=== PATIENT | male | born 1945 | race Caucasian/White ===

== ENCOUNTER 2017-05-03 17:28 | Emergency (ER) | payer MEDICARE, OTHER ==
--- NOTE | 2017-05-03 18:03 | Emergency Department Record ---
History of Present Illness - General Source: Patient, Family Mode of Arrival: Wheelchair Limitations: No limitations - History of Present Illness Initial Comments: 71 yo male presents after a fall that occurred at 11am. He was working about 4 feet up on a ladder and fell. He landed on his left side. He did hit the side of his head. He is unsure but may have been briefly stunned or knocked out. Throughout the day he has developed back pain, left hip pain. NO neck pain. No headache. He is NOT on Plavix currently. He has been ambulating on the painful left hip. MD Complaint: Fall Onset/Timin -: Hour(s) When Fall Occurred: 4-6 hours [employer] Fall Witnessed: No Place Fall Occurred: Home Loss of Consciousness: Unsure Prolonged Down Time?: Minute(s) Symptoms Prior to Fall: None Location: Head Severity: Moderate Severity scale (1-10): 8 Quality: Sharp Associated Symptoms: Headache - [place] Coma Scale Eye Response: (4) Open spontaneously Motor Response: (6) Obeys commands Verbal Response: (5) Oriented [place] Total: 15 <ASHWIN MURRY - Last Filed: 05/03/17 19:17> <Samira Zhou - Last Filed: 05/03/17 21:16> - General Chief Complaint: Fall Injury Stated Complaint: FELL OFF LADDER Time Seen by Provider: 05/03/17 17:56 - Related Data Home Medications Medication Instructions Recorded Confirmed Last Taken Ezetimibe [Zetia] 10 mg PO DAILY 09/04/14 05/03/17 05/03/17 Lisinopril [Lisinopril] 20 mg PO BID 09/04/14 05/03/17 05/03/17 Tamsulosin HCl [Tamsulosin HCl] 0.4 mg PO DAILY 09/04/14 05/03/17 05/03/17 Citalopram Hydrobromide 10 mg PO DAILY 05/03/17 05/03/17 05/03/17 [Citalopram HBr] Previous Rx's Medication Instructions Recorded Hydrocodone/Acetaminophen [Antimony 1 each PO Q6H PRN #20 tablet 05/03/17 7.5-325 Tablet] Allergies Allergy/AdvReac Type Severity Reaction Status Date / Time No Known Drug Allergies Allergy Verified 02/22/16 14:30 Travel Screening - Travel/Exposure Within Last 30 Days Have you traveled within the last 30 days?: No - Travel/Exposure Within Last Year Have you traveled outside the [place] in the last year?: No - Additonal Travel Details Have you been exposed to anyone with a communicable illness?: No - Travel Symptoms Symptom Screening: None <ASHWIN MURRY - Last Filed: 05/03/17 19:17> Review of Systems Constitutional: Denies: Chills, Fever, Weakness Eyes: Denies: Eye discharge ENT: Denies: Congestion, Throat pain Respiratory: Denies: Cough, Dyspnea, Hemoptysis, Stridor, Wheezes Cardiovascular: Denies: Chest pain, Palpitations, Syncope Endocrine: Denies: Fatigue Gastrointestinal: Denies: Abdominal pain, Diarrhea, Nausea, Vomiting Genitourinary: Denies: Discharge, Dysuria, Frequency, Hematuria Musculoskeletal: Reports: Arthralgia, Back pain, Joint swelling, Myalgia. Denies: Neck pain Skin: Reports: Bruising Neurological: Reports: Headache. Denies: Confusion, Numbness, Tremors, Vertigo , Weakness Psychiatric: Denies: Anxiety Hematological/Lymphatic: Denies: Blood Clots, Easy bleeding, Easy bruising, Swollen glands <ASHWIN MURRY - Last Filed: 05/03/17 19:17> Past Medical History - SOCIAL HISTORY Smoking Status: Former smoker Alcohol Use: Occassional Drug Use: None - RESPIRATORY Hx Respiratory Disorders: No - CARDIOVASCULAR Hx Cardio Disorders: Yes Hx Hypertension: Yes - NEURO Hx Neuro Disorders: Yes Hx TIA: Yes - GI Hx GI Disorders: Yes Hx Reflux: Yes Hx of Polyps: Yes - Hx Genitourinary Disorders: Yes Hx Kidney Stones: Yes - ENDOCRINE Hx Endocrine Disorders: Yes Hx Diabetes: Yes Comment:: pre-diabetic; checks bs 2-3 - MUSCULOSKELETAL Hx Musculoskeletal Disorders: Yes Hx Arthritis: Yes Comment:: spinal menigitis at age 7; 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 negative: Contusion, General tenderness, Hematoma, Laceration Image of Face/Head: 1 - small superficial abrasion, no swelling - Eye Eye exam: Normal appearance, PERRL. negative: Conjunctival injection, Periorbital swelling - ENT ENT exam: Normal exam, Mucous membranes moist Ear exam: Normal external inspection Nasal Exam: Normal inspection Mouth exam: Normal external inspection Teeth exam: Normal inspection Throat exam: Normal inspection - Neck Neck exam: Normal inspection, Full ROM. negative: Tenderness - Respiratory Respiratory exam: Normal lung sounds bilaterally. negative: Accessory muscle use, Chest wall tenderness, Decreased breath sounds, Respiratory distress - Cardiovascular Cardiovascular Exam: Regular rate, Normal rhythm, Normal heart sounds Peripheral Pulses: 2+: Radial (R), Radial (L), Dorsalis Pedis (R), Dorsalis Pedis (L) - GI/Abdominal GI/Abdominal exam: Soft. negative: Distended, Tenderness - Rectal Rectal exam: Deferred - exam: Deferred - Extremities Extremities exam: Full ROM, Joint swelling (left hip), Normal capillary refill, Tenderness. negative: Normal inspection Image of Full Body: 1 - mild swelling, tenderness, full ROM - Back Back exam: Reports: CVA tenderness (R), CVA tenderness (L), Muscle spasm, Paraspinal tenderness - Neurological Neurological exam: Alert, Normal gait, Oriented X3. negative: Altered - Psychiatric Psychiatric exam: Normal affect, Normal mood. negative: Agitated, Anxious - Skin Skin exam: Dry, Intact, Normal color, Warm <ASHWIN MURRY - Last Filed: 05/03/17 19:17> Course Vital Signs 05/03/17 17:41 Temperature 98.4 F Pulse Rate 63 Respiratory 18 Rate Blood Pressure 153/81 Pulse Ox 97 - Reevaluation(s) Reevaluation #1: No acute changes on the labs The patient is in CT at this time 05/03/17 19:17 Reevaluation #2: The case was signed out to Dr Zhou Please see her chart for additional results 05/03/17 19:19 <ASHWIN MURRY - Last Filed: 05/03/17 19:17> Vital Signs 05/03/17 05/03/17 05/03/17 17:41 19:44 21:07 Temperature 98.4 F Pulse Rate 63 Pulse Rate [ 56 L 64 Pulse Ox Probe] Respiratory 18 16 16 Rate Blood Pressure 153/81 Blood Pressure 142/90 145/88 [Right Arm] Pulse Ox 97 97 96 - Reevaluation(s) Reevaluation #3: 05/03/17 21:13 pt doing better <Samira Zhou - Last Filed: 05/03/17 21:16> Medical Decision Making - Lab Data Result diagrams: 05/03/17 18:12 05/03/17 18:12 <ASHWIN MURRY - Last Filed: 05/03/17 19:17> - Lab Data Result diagrams: 05/03/17 18:12 05/03/17 18:12 Lab Results 05/03/17 05/03/17 05/03/17 Range/Units 18:12 18:12 18:12 WBC 9.6 (4.2-12.2) K/uL RBC 4.13 L (4.40-5.70) M/uL Hgb 13.1 L (14.0-18.0) gm/dl Hct 40.0 L (42.0-52.0) % MCV 96.9 (81-97) fl MCH 31.7 (27-33) pg MCHC 32.8 (32-36) g/dl RDW 13.3 (11.5-14.5) % Plt Count 278 (130-400) K/uL MPV 8.8 (7.4-10.4) fl Gran % 61.3 (47-80) % Lymphocytes % 24.2 (16-45) % Monocytes % 9.2 H (0-9) % Eosinophils % 4.9 (0-6) % Basophils % 0.4 (0-6) % PT 10.5 (9.5-12.1) SECONDS INR 0.93 APTT 24.10 L (24.5-39.1) SECONDS Sodium 142 (136-145) mmol/L Potassium 4.4 (3.5-5.1) mmol/L Chloride 111 H (98-107) mmol/L Carbon Dioxide 24.1 (22-30) mmol/L Anion Gap 6.9 L (7-16) BUN 27 H (9-20) mg/dL Creatinine 0.9 (0.66-1.25) mg/dL Estimated GFR > 60 ml/min Random Glucose 124 H (70-110) mg/dL Calcium 9.4 (8.5-10.1) mg/dL Total Bilirubin 0.49 (0.2-1.3) mg/dL AST 26 (17-59) U/L ALT 21 (21-72) U/L Alkaline Phosphatase 82 (38-126) U/L Total Protein 6.8 (6.3-8.2) gm/dL Albumin 3.9 (3.5-5.0) gm/dL Globulin 2.9 (1.4-4.8) gm/dL Albumin/Globulin Ratio 1.3 (1.1-1.8) <Samira Zhou - Last Filed: 05/03/17 21:16> Disposition <ASHWIN MURRY - Last Filed: 05/03/17 19:17> Disposition: Discharge <Samira Zhou - Last Filed: 05/03/17 21:16> Clinical Impression: Head contusion Qualifiers: Encounter type: initial encounter Contusion of head detail: other part of head Qualified Code(s): S00.83XA - Contusion of other part of head, initial encounter Contusion of hip, left Qualifiers: Encounter type: initial encounter Qualified Code(s): S70.02XA - Contusion of left hip, initial encounter Disposition: Home, Self-Care Condition: (1) Good Instructions: Contusion in Adults (ED) Additional Instructions: Rest and avoid over activity Antimony as directed for pain Call your doctor for follow up of this ER visit and to review the tests performed Return if you have any new pain, uncontrolled pain or concerns. Prescriptions: Hydrocodone/Acetaminophen [Antimony 7.5-325 Tablet] 1 each PO Q6H PRN #20 tablet PRN Reason: Pain - General Forms: Patient Portal Access
[2017-05-03 18:19] LABS: BASO % 0.4 % (0-6); EOS % 4.9 % (0-6); GRAN % 61.3 % (47-80); HEMOGLOBIN 13.1 gm/dl (14.0-18.0); LYMPH % 24.2 % (16-45); MEAN CELL VOLUME 96.9 fl (81-97); MEAN CORPUSCULAR HEMOGLOBIN 31.7 pg (27-33); MEAN CORPUSCULAR HGB CONC 32.8 g/dl (32-36); MEAN PLATELET VOLUME 8.8 fl (7.4-10.4); MONO % 9.2 % (0-9); PLATELET COUNT 278 K/uL (130-400); RED BLOOD COUNT 4.13 M/uL (4.40-5.70); RED CELL DISTRIBUTION WIDTH 13.3 % (11.5-14.5); WHITE BLOOD COUNT W/O DIFF 9.6 K/uL (4.2-12.2)
[2017-05-03 18:32] LABS: ALB/GLOB RATIO 1.3 (1.1-1.8); ALBUMIN 3.9 gm/dL (3.5-5.0); ALKALINE PHOSPHATASE 82 U/L (38-126); ALT/SGPT 21 U/L (21-72); ANION GAP 6.9 (7-16); AST/SGOT 26 U/L (17-59); BILIRUBIN,TOTAL 0.49 mg/dL (0.2-1.3); BLOOD UREA NITROGEN 27 mg/dL (9-20); CARBON DIOXIDE 24.1 mmol/L (22-30); CREATININE 0.9 mg/dL (0.66-1.25); EST GLOMERULAR FILTRATION RATE > 60 ml/min; GLUCOSE,RANDOM 124 mg/dL (70-110); TOTAL PROTEIN 6.8 gm/dL (6.3-8.2)
[2017-05-03 18:33] LABS: INR 0.93; PARTIAL THROMBOPLASTIN TIME 24.1 SECONDS (24.5-39.1); PROTHROMBIN TIME (PATIENT) 10.5 SECONDS (9.5-12.1)
[2017-05-03] MEDS ORDERED: MORPHINE SULFATE 5 MG/ML PFS IVP ONE (19:03)
[2017-05-03] MEDS ORDERED: HYDROMORPHONE HCL 1 MG/ML CPJ IVP ONE ×2 (19:59→21:12)
[2017-05-03] MEDS ORDERED: HYDROCODONE/APAP 7.5/325MG TABLET PO ONE (21:14)
--- NOTE | 2017-05-04 13:33 | CT SCAN REPORT ---
EXAM: CT OF THE ABDOMEN AND PELVIS HISTORY: BACK PAIN FROM A FALL. TECHNIQUE: CT of the abdomen and pelvis was performed following intravenous contrast administration. 100 ml of Omnipaque 300 contrast was used for this examination. Comparison: CT of the abdomen and pelvis 11/15/10. FINDINGS: Mild prominence of the intrahepatic bile ducts likely an incidental finding related to the patient's prior cholecystectomy. The liver is otherwise unremarkable. The spleen is unremarkable. No pancreatic mass or inflammatory change. The gallbladder is surgically absent. No adrenal lesion seen. There is bilateral renal function with no suspicious renal mass or hydronephrosis. There are atherosclerotic changes in the abdominal aorta. There is no aneurysm. No periaortic mass or adenopathy. There are no dilated bowel loops. There is a fat containing left inguinal hernia. There is mild prostatic enlargement. There are arthritic changes in the lumbar spine. Arthritic changes are seen in the sacroiliac joints. IMPRESSION: 1. NO ACUTE ABDOMINAL OR PELVIC PROCESS IDENTIFIED. 2. PRIOR CHOLECYSTECTOMY. 3. PROSTATIC ENLARGEMENT WHICH APPEARS STABLE. 4. FAT CONTAINING RIGHT INGUINAL HERNIA. 5. ARTHRITIC CHANGES IN THE LUMBAR SPINE AND SACROILIAC JOINTS. JOB NUMBER: [id number] [facility]
--- NOTE | 2017-05-04 13:35 | CT SCAN REPORT ---
EXAM: HEAD CT HISTORY: FALL. TECHNIQUE: Noncontrast head CT was obtained. Comparison: 10/26/13. FINDINGS: The ventricles and subarachnoid spaces are unremarkable for the patient's age. No mass or mass effect. No intra or extraaxial hemorrhage. No CT evidence for large acute territorial infarct. There is no fracture or acute osseous abnormality. IMPRESSION: NO ACUTE INTRACRANIAL PROCESS IDENTIFIED. JOB NUMBER: [id number] [facility]
--- NOTE | 2017-05-04 13:39 | CT SCAN REPORT ---
EXAM: CT OF THE CERVICAL SPINE HISTORY: PATIENT FELL. TECHNIQUE: CT of the cervical spine was performed without contrast. Comparison: None. FINDINGS: No fracture or acute osseous abnormality. There are diffuse arthritic changes in the cervical spine. There is disk space narrowing at several levels most pronounced at C2-C3 and C5-C6. Facet arthritic changes are present throughout the cervical spine. There is uncovertebral spurring at multiple levels and neural foraminal narrowing is present at several levels. There is no soft tissue swelling or cervical mass visualized. IMPRESSION: 1. DIFFUSE ARTHRITIC CHANGES IN THE CERVICAL SPINE. 2. NO FRACTURE OR ACUTE OSSEOUS ABNORMALITY. JOB NUMBER: [id number] [facility]
--- NOTE | 2017-05-04 13:43 | CT SCAN REPORT ---
EXAM: CT OF THE THORAX HISTORY: PATIENT FELL, PAIN. TECHNIQUE: CT of the thorax was performed following intravenous contrast administration. 100 ml of Omnipaque 300 contrast was used for this exam. Comparison: None. FINDINGS: No mediastinal mass or hematoma seen. There are nonenlarged mediastinal and hilar lymph nodes. No aortic aneurysm or aortic dissection. There are coronary artery calcifications. No pleural or pericardial effusion. There is a calcified nodule at the left lung base likely an old granuloma. This measures approximately 5 mm in size. There are no suspicious noncalcified lung nodules seen. No area of lung consolidation. There is a small focal hernia in the medial right hemidiaphragm containing only fat similar to the patient's previous abdomen CT's. No fracture or acute osseous abnormality identified. IMPRESSION: 1. NO ACUTE THORACIC PROCESS. 2. CORONARY ARTERY CALCIFICATIONS ARE PRESENT. 3. OLD GRANULOMA RIGHT LUNG BASE. 4. OTHER CHRONIC FINDINGS ABOVE. JOB NUMBER: [id number] [facility]
== END 2017-05-03 22:00 | disposition home or self-care (01) ==
LOC: ER 17:28
DX: S00.83XA Contusion of other part of head, initial encounter (principal); S70.02XA Contusion of left hip, initial encounter; S00.81XA Abrasion of other part of head, initial encounter; S40.811A Abrasion of right upper arm, initial encounter; M54.5 Low back pain; I10 Essential (primary) hypertension; Z87.891 Personal history of nicotine dependence; W11.XXXA Fall on and from ladder, initial encounter; Y92.009 Unspecified place in unspecified non-institutional (private) residence as the place of occurrence of the external cause
CPT/HCPCS: 99284 ×2; 96376; 96374; 96375; 85025; 85730; 85610; 80053; 72125; 71260; 70450; 74177; Q9967; J1170; J2270

== ENCOUNTER 2018-03-05 09:28 | Emergency (ER) | payer MEDICARE, OTHER ==
[2018-03-05] MEDS ORDERED: LIDOCAINE UROJECT 10 ML APPL MM ONE (09:41)
--- NOTE | 2018-03-05 09:44 | Emergency Department Record ---
History of Present Illness - General Chief complaint: Male Urogenital Problem Stated complaint: UNABLE TO URINATE Time Seen by Provider: 03/05/18 09:38 Source: Patient Mode of Arrival: Ambulatory Limitations: No limitations - History of Present Illness Initial comments: The patient is here due to being unable to urinate this AM. He last urinated last evening about 9pm. He is now having lower abdominal pain. The patient denies any new medicines or illnesses. MD Complaint: Other Onset/Timin -: Hour(s) Location: Abdomen Radiation: None Severity scale (1-10): 6 Quality: Aching, Other Consistency: Constant Improves with: None Worsens with: None Reports: Urinary retention - Related Data Allergies Allergy/AdvReac Type Severity Reaction Status Date / Time No Known Drug Allergies Allergy Verified 02/22/16 14:30 Travel Screening - Travel/Exposure Within Last 30 Days Have you traveled within the last 30 days?: No Review of Systems Constitutional: Denies: Chills, Fever Past Medical History - SOCIAL HISTORY Smoking Status: Former smoker Alcohol Use: Rare Drug Use: None - RESPIRATORY Hx Respiratory Disorders: No - CARDIOVASCULAR Hx Cardio Disorders: Yes Hx Hypertension: Yes - NEURO Hx Neuro Disorders: Yes Hx TIA: Yes - GI Hx GI Disorders: Yes Hx Reflux: Yes Hx of Polyps: Yes - Hx Genitourinary Disorders: Yes Hx Kidney Stones: Yes Hx Prostate Problems: Yes - ENDOCRINE Hx Endocrine Disorders: Yes Hx Diabetes: Yes Comment:: pre-diabetic; checks bs 2-3 - MUSCULOSKELETAL Hx Musculoskeletal Disorders: Yes Hx Arthritis: Yes Comment:: spinal menigitis at age 7; 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; - PSYCH Hx Psych Problems: Yes Hx Depression: Yes - HEMATOLOGY/ONCOLOGY Hx Hematology/Oncology Disorders: No Family Medical History Any Significant Family History?: Yes Hx Cancer: Mother, Brother/Sister Hx HTN: Mother, Grandparents Hx Resp Disorders: Father Physical Exam - General General Appearance: Alert, Oriented x3, Cooperative, No acute distress - Head Head exam: Atraumatic, Normocephalic - Eye Eye exam: Normal appearance, PERRL - GI/Abdominal GI/Abdominal exam: Soft, Tenderness (There is suprapubic tenderness.) - Extremities Extremities exam: Normal inspection, Full ROM, Normal capillary refill. negative: Tenderness Course Vital Signs 03/05/18 09:37 Temperature 97.7 F Pulse Rate [ 63 Pulse Ox Probe] Respiratory 18 Rate Blood Pressure 144/88 [Left Arm] Pulse Ox 99 - Reevaluation(s) Reevaluation #1: The patient is doing MUCH better after the vega catheter placement. He did drain about 800 cc's of urine and his abdomen is very soft and nontender. 03/05/18 10:01 Reevaluation #2: The patient is doing very well at this time. He would like to keep the catheter in for the next 2 days. He is to return to the 0.8 mg of Flomax daily and will return Wednesday morning for catheter removal. 03/05/18 10:21 Medical Decision Making - Lab Data Result diagrams: 03/05/18 09:45 03/05/18 09:45 Disposition Disposition: Discharge Clinical Impression: Retention of urine Disposition: Home, Self-Care Condition: (2) Stable Instructions: Urinary Retention in Men (ED) Additional Instructions: Please take 2 Flomax daily and return to the ER Wednesday for recheck. Return sooner for any nausea, vomiting, or diarrhea. Referrals: [facility] Specialty Clinics [Provider Group] Forms: Patient Portal Access Time of Disposition: 10:23 Quality - Quality Measures Quality Measures: N/A - Blood Pressure Screening View Details: Yes Does Patient Have Any of the Following: Active Dx of HTN Blood Pressure Classification: Pre-Hypertensive BP Reading Systolic Measurement: 144 Diastolic Measurement: 88 Screening for High Blood Pressure: Patient Exclusion, Hx of HTN [[id number]]
[2018-03-05 09:57] LABS: BASO % 0.3 % (0-6); EOS % 4.7 % (0-6); HEMATOCRIT 44.2 % (42.0-52.0); HEMOGLOBIN 14.7 gm/dl (14.0-18.0); LYMPH % 22.1 % (16-45); MEAN CELL VOLUME 96.5 fl (81-97); MEAN CORPUSCULAR HEMOGLOBIN 32.1 pg (27-33); MEAN CORPUSCULAR HGB CONC 33.3 g/dl (32-36); MEAN PLATELET VOLUME 8.5 fl (7.4-10.4); MONO % 6.9 % (0-9); PLATELET COUNT 326 K/uL (130-400); RED BLOOD COUNT 4.58 M/uL (4.40-5.70); RED CELL DISTRIBUTION WIDTH 12.9 % (11.5-14.5); WHITE BLOOD COUNT W/O DIFF 11.8 K/uL (4.2-12.2)
[2018-03-05 10:06] LABS: BLOOD UREA NITROGEN 20 mg/dL (8-23)
[2018-03-05 10:06] LABS: URINE APPEARANCE CLEAR; URINE BILIRUBIN NEGATIVE (NEGATIVE); URINE BLOOD MODERATE (NEGATIVE); URINE COLOR YELLOW; URINE GLUCOSE (UA) NEGATIVE (NEGATIVE); URINE KETONE NEGATIVE (NEGATIVE); URINE LEUKOCYTE ESTERASE NEGATIVE (NEGATIVE); URINE NITRITE NEGATIVE (NEGATIVE); URINE PROTEIN NEGATIVE (NEGATIVE); URINE UROBILINOGEN 0.2 E.U./dL (0.20 - 1.00)
[2018-03-05 10:07] LABS: CREATININE 0.6 mg/dL (0.7-1.2); EST GLOMERULAR FILTRATION RATE > 60 mL/min
[2018-03-05 10:09] LABS: GLUCOSE,RANDOM 136 mg/dL (74-109)
[2018-03-05 10:10] LABS: URINE EPITHELIAL CELLS NONE SEEN (FEW); URINE WBC NONE SEEN (0-2/hpf)
== END 2018-03-05 10:33 | disposition home or self-care (01) ==
LOC: ER 09:28
DX: R39.198 Other difficulties with micturition (principal); R10.9 Unspecified abdominal pain; R33.8 Other retention of urine; I10 Essential (primary) hypertension; Z87.891 Personal history of nicotine dependence
CPT/HCPCS: 80048; 81001; 85025; 99282; 99283

== ENCOUNTER 2018-03-05 17:59 | Emergency (ER) | payer MEDICARE, OTHER ==
--- NOTE | 2018-03-05 18:09 | Emergency Department Record ---
History of Present Illness - General Chief complaint: Male Urogenital Problem Stated complaint: CATHADER PAIN Time Seen by Provider: 03/05/18 18:00 Source: Patient Mode of Arrival: Ambulatory Limitations: No limitations - History of Present Illness Initial comments: The patient is here due to having bladder pain after having a vega catheter placed 8 hours ago. He had urine retention this AM and had the catheter placed here in the ER. He did have about 800 cc's of urine out. The patient states the catheter has been draining well but about 2 hours ago he developed pain in the penis and now would like it out. There has been no fever or chills. MD Complaint: Other Onset/Timin -: Hour(s) Location: Penis Improves with: None Worsens with: None Reports: Other - Related Data Previous Rx's Medication Instructions Recorded Cephalexin [Keflex] 500 mg PO TID #21 cap 03/05/18 Allergies Allergy/AdvReac Type Severity Reaction Status Date / Time No Known Drug Allergies Allergy Verified 02/22/16 14:30 Travel Screening - Travel/Exposure Within Last 30 Days Have you traveled within the last 30 days?: No - Travel/Exposure Within Last Year Have you traveled outside the [place] in the last year?: No - Additonal Travel Details Have you been exposed to anyone with a communicable illness?: No - Travel Symptoms Symptom Screening: None Past Medical History - SOCIAL HISTORY Smoking Status: Former smoker Alcohol Use: None Drug Use: None - RESPIRATORY Hx Respiratory Disorders: No - CARDIOVASCULAR Hx Cardio Disorders: Yes Hx Hypertension: Yes - NEURO Hx Neuro Disorders: Yes Hx TIA: Yes - GI Hx GI Disorders: Yes Hx Reflux: Yes Hx of Polyps: Yes - Hx Genitourinary Disorders: Yes Hx Kidney Stones: Yes Hx Prostate Problems: Yes - ENDOCRINE Hx Endocrine Disorders: Yes Hx Diabetes: Yes Comment:: pre-diabetic; checks bs 2-3 - MUSCULOSKELETAL Hx Musculoskeletal Disorders: Yes Hx Arthritis: Yes Comment:: spinal menigitis at age 7; 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 negative: Respiratory distress - Cardiovascular Cardiovascular Exam: Regular rate, Normal rhythm, Normal heart sounds - GI/Abdominal GI/Abdominal exam: Soft, Normal bowel sounds. negative: Rebound, Rigid, Tenderness - exam: Circumcision, Normal inspection - Extremities Extremities exam: Normal inspection, Full ROM, Normal capillary refill. negative: Tenderness Course Vital Signs 03/05/18 18:02 Pulse Rate 73 Respiratory 16 Rate Blood Pressure 145/82 Pulse Ox 98 - Reevaluation(s) Reevaluation #1: The patient had the catheter removed with no difficulty and his pain did resolve. He denies any discomfort or nausea and is ready for home. He understands the need to return if he is unable to urinate. 03/05/18 18:16 Disposition Disposition: Discharge Clinical Impression: Retention of urine Disposition: Home, Self-Care Condition: (2) Stable Instructions: Urinary Retention in Men (ED) Additional Instructions: Please take the Keflex as directed and see Dr. Lamb as directed. Please return to the ER for any problems or if unable to urinate. Prescriptions: Cephalexin [Keflex] 500 mg PO TID #21 cap Forms: Patient Portal Access Time of Disposition: 18:18 Quality - Quality Measures Quality Measures: N/A - Blood Pressure Screening View Details: Yes Does Patient Have Any of the Following: No Blood Pressure Classification: Pre-Hypertensive BP Reading Systolic Measurement: 145 Diastolic Measurement: 82 Screening for High Blood Pressure: < Pre-Hypertensive BP, F/U Documented > [ [id number]] Pre-Hypertensive Follow-up Interventions: Referral to alternative/primary care provider.
[2018-03-05] MEDS ORDERED: CEPHALEXIN 500 MG CAPSULE PO STA (18:15)
== END 2018-03-05 18:25 | disposition home or self-care (01) ==
LOC: ER 17:59
DX: R33.8 Other retention of urine (principal); I10 Essential (primary) hypertension; F17.210 Nicotine dependence, cigarettes, uncomplicated

== ENCOUNTER 2019-07-12 09:13 | Emergency (ER) | payer MEDICARE, OTHER ==
[2019-07-12] MEDS ORDERED: ASPIRIN 81 MG CHEWABLE TABLET PO ONE (09:33)
--- NOTE | 2019-07-12 09:34 | Emergency Department Record ---
History of Present Illness - General Chief Complaint: Chest Pain Stated Complaint: CHEST PAIN Time Seen by Provider: 07/12/19 09:19 Source: Patient, RN notes reviewed Mode of Arrival: Ambulatory - History of Present Illness Initial Comments: patient states anterior chest wall pain and left shoulder pain sharp and worse with palpation of the left shoulder area and it started 2 dours ago and no previous heart problems and he built a fence yesterday and he is going to [employer] tomorrow to fish. No nausea no diaphoresis and he is able to reproduce the pain moving his left arm. MD Complaint: Chest pain Onset/Timin -: Days(s) Onset: Other Pain Location: Left chest Pain Radiation: LUE Severity scale (1-10): 2 Quality: Aching Consistency: Constant, Other Improves With: Nothing Worsens With: Nothing Anginal Symptoms: Nausea Treatments Prior to Arrival: None - Related Data Previous Rx's Medication Instructions Recorded Naproxen [Naprosyn] 500 mg PO Q12H #30 tab. 07/12/19 Allergies Allergy/AdvReac Type Severity Reaction Status Date / Time No Known Drug Allergies Allergy Unverified 05/24/19 11:09 Travel Screening - Travel/Exposure Within Last 30 Days Have you traveled within the last 30 days?: No Review of Systems Reviewed: No additional complaints except as noted below Constitutional: Reports: As per HPI. Denies: Chills, Fever, Malaise, Night sweats, Weakness, Weight change Eyes: Reports: As per HPI. Denies: Eye discharge, Eye pain, Photophobia, Vision change ENT: Reports: As per HPI. Denies: Congestion, Dental pain, Ear pain, Epistaxis, Hearing loss, Throat pain Respiratory: Reports: As per HPI. Denies: Cough, Dyspnea, Hemoptysis, Stridor, Wheezes Cardiovascular: Reports: As per HPI. Denies: Arrhythmia, Chest pain, Dyspnea on exertion, Edema, Murmurs, Orthopnea, Palpitations, Paroxysmal nocturnal dyspnea, Rheumatic Fever, Syncope Endocrine: Reports: As per HPI. Denies: Fatigue, Heat or cold intolerance, Polydipsia, Polyuria Gastrointestinal: Reports: As per HPI. Denies: Abdominal pain, Constipation, Diarrhea, Hematemesis, Hematochezia, Melena, Nausea, Vomiting Genitourinary: Reports: As per HPI. Denies: Dysuria, Frequency, Hematuria, Incontinence, Retention, Testicular pain, Testicular mass, Urgency Musculoskeletal: Reports: As per HPI. Denies: Arthralgia, Back pain, Gout, Joint swelling, Myalgia, Neck pain Skin: Reports: As per HPI. Denies: Bruising, Change in color, Change in hair/nails, Lesions, Pruritus, Rash Neurological: Reports: As per HPI. Denies: Abnormal gait, Confusion, Headache, Numbness, Paresthesias, Seizure, Tingling, Tremors, Vertigo, Weakness Psychiatric: Reports: As per HPI. Denies: Anxiety, Auditory hallucinations, Depression, Homicidal thoughts, Suicidal thoughts, Visual hallucinations Hematological/Lymphatic: Reports: As per HPI. Denies: Anemia, Blood Clots, Easy bleeding, Easy bruising, Swollen glands Past Medical History - SOCIAL HISTORY Smoking Status: Former smoker - RESPIRATORY Hx Respiratory Disorders: Yes Hx Sleep Apnea: Yes (possibly pt snores) - CARDIOVASCULAR Hx Cardio Disorders: Yes Hx Hypertension: Yes (on meds good control) - NEURO Hx Neuro Disorders: Yes Hx TIA: Yes (4-5 yrs ago) - GI Hx GI Disorders: Yes Hx Reflux: Yes (with over eatting) Hx of Polyps: Yes - Hx Genitourinary Disorders: Yes Hx Kidney Stones: Yes Hx Prostate Problems: Yes (BPH) - ENDOCRINE Hx Endocrine Disorders: Yes Hx Diabetes: Yes Comment:: pre-diabetic; checks bs 2-3 x's a week 116 - MUSCULOSKELETAL Hx Musculoskeletal Disorders: Yes Hx Arthritis: Yes (hands, fingers) Comment:: spinal menigitis at age 7; 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; - PSYCH Hx Psych Problems: Yes Hx Depression: Yes - HEMATOLOGY/ONCOLOGY Hx Hematology/Oncology Disorders: No Family Medical History Any Significant Family History?: Yes Hx Cancer: Mother, Brother/Sister Hx HTN: Mother, Grandparents Hx Resp Disorders: Father Physical Exam - General General Appearance: Alert, Oriented x3, Cooperative, No acute distress - Head Head exam: Normal inspection - Eye Eye exam: Normal appearance, PERRL Pupils: Normal accommodation - ENT ENT exam: Normal exam, Mucous membranes moist, Normal external ear exam, Normal orophraynx, TM's normal bilaterally Ear exam: Normal external inspection. negative: External canal tenderness Nasal Exam: Normal inspection. negative: Discharge, Sinus tenderness Mouth exam: Normal external inspection, Tongue normal Teeth exam: Normal inspection. negative: Dental caries Throat exam: Normal inspection. negative: Tonsillar erythema, Tonsillar exudate - Neck Neck exam: Normal inspection, Full ROM. negative: Tenderness - Respiratory Respiratory exam: Normal lung sounds bilaterally. negative: Respiratory distress - Cardiovascular Cardiovascular Exam: Regular rate, Normal rhythm, Normal heart sounds, Other (palpation of the left shoulder and chest causes more pain) - GI/Abdominal GI/Abdominal exam: Soft, Normal bowel sounds. negative: Tenderness - Rectal Rectal exam: Deferred - exam: Deferred - Extremities Extremities exam: Normal inspection, Full ROM, Normal capillary refill. negative: Tenderness - Back Back exam: Reports: Normal inspection, Full ROM. Denies: Muscle spasm, Rash noted, Tenderness - Neurological Neurological exam: Alert, Normal gait, Oriented X3, Reflexes normal - Psychiatric Psychiatric exam: Normal affect, Normal mood - Skin Skin exam: Dry, Intact, Normal color, Warm Course Vital Signs 07/12/19 09:18 Pulse Rate 59 L Respiratory 16 Rate Blood Pressure 152/90 Pulse Ox 98 Medical Decision Making - Data Complexity MDM Data: Labs Ordered and/or Reviewed, EKG Ordered and/or Reviewed (EKG no acute changes and NSR and ) - Lab Data Result diagrams: 07/12/19 09:20 07/12/19 09:20 - EKG Data -: EKG Interpreted by Me Disposition Clinical Impression: Acute chest wall pain Disposition: Home, Self-Care Condition: (1) Good Instructions: Costochondritis (ED) Additional Instructions: follow up with family Dr in 1-2 weeks Prescriptions: Naproxen [Naprosyn] 500 mg PO Q12H #30 tab.dr Forms: Patient Portal Access Time of Disposition: 10:22 Quality - Quality Measures Quality Measures: N/A - Blood Pressure Screening Does Patient Have Any of the Following: No, Active Dx of HTN Blood Pressure Classification: Hypertensive Reading Systolic Measurement: 152 Diastolic Measurement: 90 Screening for High Blood Pressure: Patient Exclusion, Hx of HTN [[id number]]
[2019-07-12 09:42] LABS: ABSOLUTE NEUTROPHIL COUNT 3.11; BASO % 0.6 % (0-6); EOS % 7.6 % (0-6); HEMATOCRIT 43.9 % (42.0-52.0); HEMOGLOBIN 14.6 gm/dl (14.0-18.0); LYMPH % 38.3 % (16-45); MEAN CELL VOLUME 95.9 fl (81-97); MEAN CORPUSCULAR HEMOGLOBIN 31.9 pg (27-33); MEAN CORPUSCULAR HGB CONC 33.3 g/dl (32-36); MONO % 6.5 % (0-9); PLATELET COUNT 323 K/uL (130-400); RED BLOOD COUNT 4.58 M/uL (4.40-5.70); RED CELL DISTRIBUTION WIDTH 12.8 % (11.5-14.5); WHITE BLOOD COUNT W/O DIFF 6.6 K/uL (4.2-12.2)
[2019-07-12 09:51] LABS: BLOOD UREA NITROGEN 15 mg/dL (8-23); CREATININE 0.8 mg/dL (0.7-1.2); EST GLOMERULAR FILTRATION RATE > 60 mL/min
[2019-07-12 09:54] LABS: GLUCOSE,RANDOM 193 mg/dL (74-109)
== END 2019-07-12 10:35 | disposition home or self-care (01) ==
LOC: ER 09:13
DX: R07.89 Other chest pain (principal); R73.03 Prediabetes; Z87.891 Personal history of nicotine dependence
CPT/HCPCS: 80048; 84484; 85025; 85730; 93005; 93010; 99284